=== PATIENT | female | born 1990 | race Caucasian/White ===

== ENCOUNTER 2022-06-24 17:07 | Outpatient (CLI) | payer OTHER | END 2022-06-25 09:39 | disposition home or self-care (01) | LOC: OBS/DEL 17:07 | PROVIDERS: ATTEND Specialist | DX: O20.8 Other hemorrhage in early pregnancy (principal); Z3A.28 28 weeks gestation of pregnancy ==

== ENCOUNTER 2022-06-28 11:34 | Outpatient (CLI) | payer OTHER | END 2022-06-29 15:19 | disposition home or self-care (01) | LOC: OBS/DEL 11:34 | PROVIDERS: ATTEND Specialist | DX: O20.8 Other hemorrhage in early pregnancy (principal); Z3A.28 28 weeks gestation of pregnancy ==

== ENCOUNTER 2022-07-29 08:57 | Outpatient (CLI) | payer OTHER | END 2022-07-29 10:20 | disposition home or self-care (01) | LOC: PRENATAL 08:57 | PROVIDERS: ATTEND Obstetrics & Gynecology Maternal & Fetal Medicine | DX: O26.849 Uterine size-date discrepancy, unspecified trimester (principal); O35.9XX0 Maternal care for (suspected) fetal abnormality and damage, unspecified, not applicable or unspecified; O35.3XX0 Maternal care for (suspected) damage to fetus from viral disease in mother, not applicable or unspecified; O26.899 Other specified pregnancy related conditions, unspecified trimester; Z3A.32 32 weeks gestation of pregnancy ==